=== PATIENT | male | born 1990 | race Caucasian/White ===

== ENCOUNTER 2020-04-08 17:08 | Emergency (ER) | payer MEDICAID, SELFPAY ==
[~2020-04-08] VITALS: Ht 193 cm; Wt 104.5 kg
[2020-04-08 18:50] VITALS: BP 143/63
== END 2020-04-08 18:51 | disposition home or self-care (01) ==
LOC: M ED 17:08
DX: Z03.818 Encounter for observation for suspected exposure to other biological agents ruled out (principal); F17.210 Nicotine dependence, cigarettes, uncomplicated
CPT/HCPCS: 99283; U0002